=== PATIENT | male | born 1965 | race Caucasian/White ===

== ENCOUNTER 2021-05-27 08:25 | Outpatient (CLI) | payer OTHER | END 2021-05-27 08:26 | disposition critical access hospital (66) | LOC: EMS 08:25 | DX: S01.01XA Laceration without foreign body of scalp, initial encounter (principal); V59.49XA Driver of pick-up truck or van injured in collision with other motor vehicles in traffic accident, initial encounter; Y93.89 Activity, other specified; Y92.410 Unspecified street and highway as the place of occurrence of the external cause | CPT/HCPCS: A0425; A0427 ==

== ENCOUNTER 2021-05-27 08:57 | Emergency (ER) | payer OTHER ==
[2021-05-27] MEDS ORDERED: LIDOCAINE 2%-EPI 1:100000 20 ML MDV ONE (09:24)
[2021-05-27] MEDS ORDERED: IOPAMIDOL-300 100 ML VIAL ONE (09:53)
[2021-05-27 10:01] LABS: BASOPHILS # (AUTO) 0.1 10^3/uL (0.0-0.1); BASOPHILS % (AUTO) 0.9 %; EOSINOPHILS # (AUTO) 0.1 10^3/uL (0.0-0.7); EOSINOPHILS % (AUTO) 0.6 %; HCT - HEMATOCRIT 42.6 % (42.0-52.0); HGB - HEMOGLOBIN 14.6 g/dL (14.0-18.0); LYMPHOCYTES % (AUTO) 10.5 %; MEAN CORPUSCULAR HEMOGLOBIN 31.5 pg (27.0-31.0); MEAN CORPUSCULAR HGB CONC 34.3 g/dL (32.0-36.0); MEAN PLATELET VOLUME 9.3 fL (7.4-11.4); MONOCYTES # (AUTO) 0.6 10^3/uL (0.0-1.0); MONOCYTES % (AUTO) 6.4 %; NEUTROPHILS # (AUTO) 7.9 10^3/uL (1.5-6.6); NEUTROPHILS % (AUTO) 81.2 %; PLT - PLATELET COUNT 286 10^3/uL (130-450); RED BLOOD COUNT 4.63 10^6/uL (4.70-6.10); RED CELL DISTRIBUTION WIDTH 13.5 % (12.0-15.0); WHITE BLOOD COUNT 9.8 x10^3/uL (4.8-10.8)
[2021-05-27] MEDS ORDERED: HYDROmorphone 1 MG/ML CARPUJECT IVP STA (10:08)
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
[2021-05-27 10:29] LABS: ALBUMIN 4.5 g/dL (3.2-5.5); ALBUMIN/GLOBULIN RATIO 1.7 (1.0-2.2); BILIRUBIN,TOTAL 0.8 mg/dL (0.2-1.0); CALCIUM 8.4 mg/dL (8.5-10.3); CREATININE 0.9 mg/dL (0.6-1.2); TOTAL PROTEIN 7.1 g/dL (6.7-8.2)
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
[2021-05-27 11:27] VITALS: BP 131/90
[2021-05-27] MEDS ORDERED: IOPAMIDOL-300 100 ML VIAL IVP ONE (12:13)
== END 2021-05-27 11:47 | disposition home or self-care (01) ==
LOC: ED 08:57
DX: S01.01XA Laceration without foreign body of scalp, initial encounter (principal); V59.49XA Driver of pick-up truck or van injured in collision with other motor vehicles in traffic accident, initial encounter; Y93.89 Activity, other specified; Y92.410 Unspecified street and highway as the place of occurrence of the external cause
CPT/HCPCS: 36415; 70450; 71260; 73130; 74177; 80053; 83690; 85025; 99283; 99284; Q9967

== ENCOUNTER 2023-02-28 00:35 | Emergency (ER) | payer SELFPAY ==
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
[2023-02-28] MEDS ORDERED: HYDROmorphone 1 MG/ML CARPUJECT IVP STA (04:41)
[2023-02-28] MEDS ORDERED: iohexoL-300 100 ML VIAL ONE (04:55)
[2023-02-28 05:20] LABS: BASOPHILS # (AUTO) 0.1 10^3/uL (0.0-0.1); BASOPHILS % (AUTO) 0.5 %; EOSINOPHILS # (AUTO) 0.1 10^3/uL (0.0-0.7); EOSINOPHILS % (AUTO) 0.5 %; HCT - HEMATOCRIT 43.6 % (42.0-52.0); HGB - HEMOGLOBIN 14.6 g/dL (14.0-18.0); LYMPHOCYTES # (AUTO) 0.9 10^3/uL (1.5-3.5); LYMPHOCYTES % (AUTO) 8.9 %; MEAN CORPUSCULAR HEMOGLOBIN 30.4 pg (27.0-31.0); MEAN CORPUSCULAR HGB CONC 33.5 g/dL (32.0-36.0); MEAN CORPUSCULAR VOLUME 90.8 fL (80.0-94.0); MEAN PLATELET VOLUME 9.8 fL (7.4-11.4); MONOCYTES # (AUTO) 1.1 10^3/uL (0.0-1.0); MONOCYTES % (AUTO) 11.6 %; NEUTROPHILS # (AUTO) 7.6 10^3/uL (1.5-6.6); NEUTROPHILS % (AUTO) 78.2 %; PLT - PLATELET COUNT 189 10^3/uL (130-450); RED CELL DISTRIBUTION WIDTH 13.4 % (12.0-15.0); WHITE BLOOD COUNT 9.7 x10^3/uL (4.8-10.8)
[2023-02-28 05:30] LABS: ALBUMIN 4.3 g/dL (3.2-5.5); ALBUMIN/GLOBULIN RATIO 1.2 (1.0-2.2); CALCIUM 10.2 mg/dL (8.5-10.3); CREATININE 0.9 mg/dL (0.6-1.2); POTASSIUM 4.7 mmol/L (3.5-5.0)
[2023-02-28] MEDS ORDERED: iohexoL-300 100 ML VIAL IVP ONE (06:27)
[2023-02-28 07:00] VITALS: BP 153/102
--- NOTE | 2023-02-28 07:59 | CT Report ---
PROCEDURE: ANGIO CHEST W/WO INDICATIONS: right lower pleuritic chest pain CONTRAST: 100 ML OMNI 300 TECHNIQUE: After the administration of intravenous contrast, 2 mm axial images were acquired from the pulmonary apices to the posterior costophrenic angles during the arterial phase. In addition, 1 mm lung kernel and 5 mm soft tissue kernel reconstructions were performed. 3-dimensional coronal oblique maximum int ensity projection (MIP) reformats, 8 mm axial MIP, and 5 mm coronal and sagittal MPR reformats were t hen performed through the thorax. For radiation dose reduction, the following was used: automated exp osure control, adjustment of mA and/or kV according to patient size. COMPARISON: CT chest 05/27/2021. FINDINGS: Image quality: Fair. Large vessels: No filling defects within the opacified pulmonary arteries, accounting for motion and contrast timing. Lungs and pleura: Streaky and ground glass opacity at the right lung base. Trace right pleural effusi on. No pneumothorax. No suspicious pulmonary nodules which require follow up. Mediastinum: Heart size is normal. No pericardial effusion. No large vessel abnormality. No mediastin al adenopathy by size criteria. Chest wall and lower neck: Thyroid is unremarkable. No axillary or supraclavicular adenopathy by size . Bones: No aggressive osseous abnormality. Upper Abdomen: Unremarkable. IMPRESSION: Image quality is fair. 1. No central pulmonary embolism. 2. Streaky and ground glass opacity at the right lung base. Favor atelectasis. 3. Trace right pleural effusion. Reviewed by: Davy Carpenter MD on 02/28/2023 7:58 AM PDT Approved by: Davy Carpenter MD on 02/28/2023 7:58 AM PDT Station ID: [id number]
--- NOTE | 2023-02-28 08:05 | CT Report ---
PROCEDURE: ABDOMEN/PELVIS W INDICATIONS: RUQ / right flank pain CONTRAST: 100 ML OMNI 300 TECHNIQUE: After the administration of intravenous contrast, 5 mm thick sections acquired from the diaphragms to the symphysis. 5 mm thick coronal and sagittal reformats were acquired. For radiation dose reducti on, the following was used: automated exposure control, adjustment of mA and/or kV according to viry ent size. COMPARISON: Same day CT pulmonary angiogram. CT abdomen pelvis 05/27/2021 FINDINGS: Image quality: Excellent. Lung bases and heart: Trace right pleural effusion. Right lung base atelectasis suspected. Liver: No solid mass. Gallbladder and biliary tree: No radiopaque stones or wall thickening. No biliary dilation. Spleen: No splenomegaly. Pancreas: No peripancreatic fluid collection. Enhances uniformly. Adrenals: No adrenal nodule. Kidneys and ureters: No hydronephrosis. No solid mass. Low-density left renal cysts are unchanged. Bowel and peritoneum: No bowel distension. No pathologic free fluid. Diverticulosis without evidence of diverticulitis. Normal appendix. Lymph nodes: No central or retroperitoneal adenopathy. Vessels: No infrarenal aortic aneurysm. Scattered calcified atherosclerotic plaque. PELVIS Reproductive organs: Prostatomegaly. Bladder: No stone. Pelvic lymph nodes: No pelvic adenopathy by size criteria. Bones: No aggressive osseous abnormality. Multilevel DDD. Other: Ventral abdominal wall hernia repair with mesh. Probable tiny inguinal hernias. IMPRESSION: 1. No hydronephrosis. 2. Diverticulosis. No free fluid. Normal appendix. 3. Trace right pleural effusion. Reviewed by: Davy Carpenter MD on 02/28/2023 8:04 AM PDT Approved by: Davy Carpenter MD on 02/28/2023 8:04 AM PDT Station ID: [id number]
[2023-02-28] MEDS ORDERED: oxyCODONE 5 MG TABLET PO STA (09:12)
== END 2023-02-28 09:17 | disposition home or self-care (01) ==
LOC: ED 00:35
DX: R10.11 Right upper quadrant pain (principal); J98.11 Atelectasis
CPT/HCPCS: 36415; 71275; 74177; 80053; 83690; 85025; 96374; 99284; A9270; J1170; Q9967

== ENCOUNTER 2024-04-12 11:18 | Outpatient (CLI) | payer SELFPAY | END 2024-04-12 23:59 | disposition home or self-care (01) | LOC: EMS 11:18 ==